=== PATIENT | male | born 1960 | race Caucasian/White ===

== ENCOUNTER 2018-08-07 22:23 | Emergency (ER) | payer OTHER | END 2018-08-07 23:03 | disposition home or self-care (01) ==

== ENCOUNTER 2018-08-09 19:47 | Observation (INO) | payer OTHER | END 2018-08-11 12:55 | disposition home or self-care (01) | LOC: F3N 08-10 00:20 ==

== ENCOUNTER 2018-08-19 21:53 | Observation (INO) | payer OTHER | END 2018-08-20 15:50 | disposition short-term general hospital (02) | LOC: F3N 08-20 11:55 ==